=== PATIENT | male | born 1955 | race Caucasian/White ===

== ENCOUNTER → 2021-11-13 | Day surgery (SDC) | payer MEDICARE, OTHER ==
[~2021-11-13] VITALS: Ht 170.2 cm; Wt 79.7 kg
[~2021-11-13] MED LIST: LEVOTHYROXINE50 MCG PO
[2021-11-13 08:41] LABS: HCT 36.6 % (42.0-52.0); HGB 11.6 g/dl (13.2-18.0); MCH 25.8 pg (25.0-31.0); MCHC 31.7 g/dL (32.0-36.0); MCV 81.3 fL (78.0-100.0); MPV 10.6 fL (6.0-9.5); RBC 4.5 M/uL (4.70-6.00); RDW 14.8 % (11.5-14.0); WBC 6.6 K/uL (4.0-10.5)
[2021-11-13 08:47] LABS: ALBUMIN 4.2 g/dL (3.4-5.0); BILIRUBIN - TOTAL 0.5 mg/dL (0.2-1.0); BUN/CREAT RATIO (CALC) 10.2 RATIO; CREATININE 0.88 mg/dL (0.67-1.17); GLOBULIN (CALCULATION) 3.6 g/dL; POTASSIUM 3.6 mmol/L (3.5-5.1); TOTAL PROTEIN 7.8 g/dL (6.4-8.2)
== END | disposition home or self-care (01) ==
LOC: FAS 07:20
PROVIDERS: Surgery
DX: Z12.11 Encounter for screening for malignant neoplasm of colon (principal); D12.6 Benign neoplasm of colon, unspecified
CPT/HCPCS: 36415; 80053; J2704; J7120